=== PATIENT | female | born 1985 | race African-American/Black ===

== ENCOUNTER 2020-08-28 15:43 | Emergency (ER) | payer OTHER ==
[2020-08-28 16:08] VITALS: BP 146/86; TEMP 98.7; BMI 38.6
[2020-08-28 16:58] VITALS: PULSE 57
[2020-08-28 17:16] LABS: BASO % 1.9 % (0-2.0); EOS % 4.6 % (0-4.5); HEMATOCRIT 36.2 % (32.4-45.2); HEMOGLOBIN 12.3 GM/dL (10.7-15.3); LYMPH % 43.2 % (8-40); MCH 28.4 pg (25.7-33.7); MEAN CELL VOLUME 83.6 fl (80-96); MEAN PLT VOLUME 8.7 fl (7.5-11.1); NEUT % 45.3 % (42.8-82.8); PLATELET COUNT 321 K/MM3 (134-434); RBC 4.33 M/mm3 (3.60-5.2); RDW 13.6 % (11.6-15.6); WHITE BLOOD COUNT 7.8 K/mm3 (4.0-10.0)
[2020-08-28 17:39] LABS: CALCIUM 8.9 mg/dL (8.5-10.1)
[2020-08-28 17:40] LABS: ALBUMIN 3.8 g/dl (3.4-5.0); BLOOD UREA NITROGEN 14.5 mg/dL (7-18)
[2020-08-28 17:43] LABS: CREATININE 0.9 mg/dL (0.55-1.3)
[2020-08-28 17:44] LABS: BILIRUBIN,TOTAL 0.5 mg/dL (0.2-1); TOT PROT 7.3 g/dl (6.4-8.2)
== END 2020-08-28 18:19 | disposition home or self-care (01) ==
LOC: JER 15:43
DX: R05 Cough (principal); R07.89 Other chest pain
CPT/HCPCS: 36415; 71045-TC-FY; 80053; 85025; 85379; 93005; 93010; 99285-25

== ENCOUNTER 2021-02-09 12:52 | Emergency (ER) | payer OTHER ==
[2021-02-09 13:19] VITALS: BP 150/92; PULSE 83; TEMP 98; BMI 40.7
== END 2021-02-09 14:55 | disposition left against medical advice (07) ==
LOC: JERFT 12:52
DX: F32.A Depression, unspecified (principal); F41.9 Anxiety disorder, unspecified
CPT/HCPCS: 99281-25